=== PATIENT | female | born 1995 | race African-American/Black ===

== ENCOUNTER 2021-05-08 10:47 | Emergency (ER) | payer OTHER ==
[~2021-05-08] VITALS: Ht 162.6 cm; Wt 67.4 kg
[2021-05-08] MEDS ORDERED: CVS2500C PO (10:59)
[2021-05-08 11:37] LABS: HEMATOCRIT 35.4 % (36.0-47.0); HEMOGLOBIN 11.1 g/dl (12.0-15.5); MEAN CORPUSCULAR HEMOGLOBIN 26.6 pg (27.0-33.0); MEAN CORPUSCULAR HGB CONC 31.4 g/dl (32.0-36.5); MEAN CORPUSCULAR VOLUME 84.7 fl (80.0-96.0); PLATELET COUNT, AUTOMATED 307 10^3/uL (150-450); RED BLOOD COUNT 4.18 10^6/uL (4.00-5.40); WHITE BLOOD COUNT 4.1 10^3/uL (4.0-10.0)
[2021-05-08 12:30] VITALS: BP 130/78
== END 2021-05-08 12:38 | disposition home or self-care (01) ==
LOC: M ED 10:47
DX: N93.9 Abnormal uterine and vaginal bleeding, unspecified (principal); E11.9 Type 2 diabetes mellitus without complications

== ENCOUNTER → 2021-05-23 | Outpatient (CLI) | payer OTHER ==
[~2021-05-23] MED LIST: CVS2500C PO
[2021-05-23 13:40] LABS: HEPATITIS B SURFACE ANTIBODY NEGATIVE (POSITIVE)
== END ==
LOC: M LAB 12:21
PROVIDERS: ATTEND Physician Assistant Medical
DX: Z13.0 Encounter for screening for diseases of the blood and blood-forming organs and certain disorders involving the immune mechanism (principal)

== ENCOUNTER 2021-08-03 18:06 | Emergency (ER) | payer OTHER ==
[~2021-08-03] VITALS: Ht 162.6 cm; Wt 65.5 kg
[2021-08-03 18:06] VITALS: BP 136/66
[2021-08-03] MEDS ORDERED: KETOROLAC TROMETHAMINE 10 MG TAB PO ONE (20:05)
[2021-08-03] MEDS ORDERED: PRED20TA PO ×2 (21:24→21:38)
[2021-08-03] MEDS ORDERED: CYCL5TAB PO ×2 (21:24→21:38)
[2021-08-03] MEDS ORDERED: CYCLOBENZAPRINE 5MG TABLET PO ONE (21:25)
== END 2021-08-03 21:39 | disposition home or self-care (01) ==
LOC: M ED 18:06
DX: S39.012A Strain of muscle, fascia and tendon of lower back, initial encounter (principal); M25.552 Pain in left hip; W10.9XXA Fall (on) (from) unspecified stairs and steps, initial encounter; Y92.099 Unspecified place in other non-institutional residence as the place of occurrence of the external cause; Y93.9 Activity, unspecified; Y99.9 Unspecified external cause status; E11.9 Type 2 diabetes mellitus without complications; Z98.84 Bariatric surgery status; N83.201 Unspecified ovarian cyst, right side; Z79.899 Other long term (current) drug therapy

== ENCOUNTER 2021-11-21 11:15 | Emergency (ER) | payer OTHER ==
[~2021-11-21] VITALS: Ht 162.6 cm; Wt 83.6 kg
[~2021-11-21 11:15] MED LIST changes: +CYCL5TAB PO; +PRED20TA PO
[2021-11-21 11:16] VITALS: BP 113/56
[2021-11-21] MEDS ORDERED: ACET500T15 PO (11:45)
[2021-11-21] MEDS ORDERED: AMOX875T2 PO (13:38)
== END 2021-11-21 13:55 | disposition home or self-care (01) ==
LOC: M ED 11:15
DX: U07.1 COVID-19 (principal); H66.91 Otitis media, unspecified, right ear; Z79.899 Other long term (current) drug therapy

== ENCOUNTER 2021-11-22 18:44 | Emergency (ER) | payer OTHER ==
[~2021-11-22] VITALS: Ht 162.6 cm; Wt 70.0 kg
[~2021-11-22 18:44] MED LIST changes: +ACET500T15 PO; +AMOX875T2 PO
[2021-11-22 23:12] VITALS: BP 110/67
[2021-11-22] MEDS ORDERED: BENZONATATE 100MG CAPSULE PO ONE (23:30)
[2021-11-22] MEDS ORDERED: KETOROLAC 60MG 2ML VIAL IM ONE (23:30)
[2021-11-22] MEDS ORDERED: ALBUTEROL 90 MCG/ACT 8GM HFA INHALER INH ONE (23:30)
[2021-11-22] MEDS ORDERED: LIDOCAINE 5% (LIDODERM) PATCH TD ONE (23:30)
[2021-11-23 00:22] LABS: BASO # 0.1 10^3/uL (0.0-0.2); BASO % 1.7 % (0.0-1.0); EOS # 0.2 10^3/uL (0.0-0.5); EOS % 4.3 % (0.0-3.0); HEMATOCRIT 39.8 % (36.0-47.0); HEMOGLOBIN 12.5 g/dl (12.0-15.5); LYMPH # 2.3 10^3/uL (1.5-5.0); LYMPH % 49.2 % (24.0-44.0); MEAN CORPUSCULAR HEMOGLOBIN 27.2 pg (27.0-33.0); MEAN CORPUSCULAR HGB CONC 31.4 g/dl (32.0-36.5); MEAN CORPUSCULAR VOLUME 86.5 fl (80.0-96.0); MONO # 0.7 10^3/uL (0.0-0.8); NEUTROPHILS # 1.4 10^3/uL (1.5-8.5); NEUTROPHILS % 30.4 % (36.0-66.0); PLATELET COUNT, AUTOMATED 301 10^3/uL (150-450); WHITE BLOOD COUNT 4.6 10^3/uL (4.0-10.0)
[2021-11-23 00:31] LABS: ALBUMIN 3.8 GM/DL (3.2-5.2); ALT/SGPT 36 U/L (12-78); BILIRUBIN,DIRECT 0.4 MG/DL (0.0-0.2); BILIRUBIN,TOTAL 0.8 MG/DL (0.2-1.0); BLOOD UREA NITROGEN 9 MG/DL (7-18); CALCIUM LEVEL 8.4 MG/DL (8.5-10.1); CARBON DIOXIDE LEVEL 26 MEQ/L (21-32); CHLORIDE LEVEL 106 MEQ/L (98-107); CREATININE FOR GFR 0.52 MG/DL (0.55-1.30); GLOMERULAR FILTRATION RATE > 60.0 (>60); GLUCOSE, FASTING 82 MG/DL (70-100); POTASSIUM SERUM 3.9 MEQ/L (3.5-5.1); SODIUM LEVEL 140 MEQ/L (136-145); TOTAL PROTEIN 7.3 GM/DL (6.4-8.2)
[2021-11-23] MEDS ORDERED: NIRMATRELVIR/RITONAVIR CO-PACK (EMERGENCY USE AUTH) PO STA (00:34)
[2021-11-23] MEDS ORDERED: HOME MED LIST COMPLETE! XX SCH (01:00)
[2021-11-23] MEDS ORDERED: PROAAER10 INH (01:50)
[2021-11-23] MEDS ORDERED: NAPR500T6 PO (01:50)
[2021-11-23] MEDS ORDERED: ASPE4PAD TOP (01:50)
[2021-11-23] MEDS ORDERED: BENZ200C70 PO (01:50)
[2021-11-23] MEDS ORDERED: NIRMATRELVIR/RITONAVIR CO-PACK (EMERGENCY USE AUTH) PO SCH ×2 (09:00)
[2021-11-23] MEDS ORDERED: **NOTE PATIENT COMMENT** MISC XX SCH (21:00)
== END 2021-11-23 01:56 | disposition home or self-care (01) ==
LOC: M ED 18:44
DX: U07.1 COVID-19 (principal); R06.02 Shortness of breath; R05.9 Cough, unspecified; R53.1 Weakness; Z79.899 Other long term (current) drug therapy
CPT/HCPCS: 36415; 71045; 80048; 80076; 85025; 94640; 96372; 99283; J1885

== ENCOUNTER → 2022-02-13 | Outpatient (REF) | payer OTHER ==
[~2022-02-13] MED LIST changes: +ASPE4PAD TOP; +BENZ200C70 PO; +NAPR500T6 PO; +PROAAER10 INH
[2022-02-13 16:24] LABS: APPEARANCE, URINE MANUAL HAZY (CLEAR); COLOR, URINE MANUAL YELLOW (YELLOW); GLUCOSE, URINE (UA) MANUAL NEGATIVE (NEGATIVE); PROTEIN, URINE MANUAL NEGATIVE (NEGATIVE); SPECIFIC GRAVITY,URINE MANUAL 1.015 (1.002-1.035)
[2022-02-13 16:25] LABS: BILIRUBIN, URINE MANUAL NEGATIVE (NEGATIVE); BLOOD URINE MANUAL NEGATIVE (NEGATIVE); KETONE, URINE MANUAL NEGATIVE (NEGATIVE); LEUKOCYTE ESTERASE, URINE MAN TRACE (NEGATIVE); NITRITE, URINE MANUAL POSITIVE (NEGATIVE); UROBILINOGEN, URINE MANUAL NORMAL (NORMAL)
[2022-02-13 16:38] LABS: BACTERIA, URINE LARGE AMOUNT; RBC, URINE 0-1 /hpf (0-3); SQUAMOUS EPITHELIAL CELL URINE SMALL AMOUNT /hpf (SMALL AMT)
[2022-02-13 16:39] LABS: HYALINE CAST, URINE NONE SEEN /lpf (0-1)
== END ==
LOC: M LAB REF 16:11
PROVIDERS: ATTEND Physician Assistant Medical
DX: N39.0 Urinary tract infection, site not specified (principal)

== ENCOUNTER → 2022-02-28 | Outpatient (CLI) | payer OTHER | LOC: M RAD 09:08 | PROVIDERS: ATTEND Nurse Practitioner Family | DX: R91.8 Other nonspecific abnormal finding of lung field (principal) ==

== ENCOUNTER 2022-03-29 21:12 | Emergency (ER) | payer OTHER ==
[~2022-03-29] VITALS: Ht 162.6 cm; Wt 69.5 kg
[~2022-03-29 21:12] MED LIST changes: -KETO10TAB PO
[2022-03-29 21:46] LABS: BASO # 0.1 10^3/uL (0.0-0.2); BASO % 1.5 % (0.0-1.0); EOS # 0.2 10^3/uL (0.0-0.5); EOS % 2.6 % (0.0-3.0); HEMATOCRIT 36.3 % (36.0-47.0); LYMPH # 2.2 10^3/uL (1.5-5.0); LYMPH % 37.8 % (24.0-44.0); MEAN CORPUSCULAR HEMOGLOBIN 27.1 pg (27.0-33.0); MEAN CORPUSCULAR HGB CONC 30.3 g/dl (32.0-36.5); MEAN CORPUSCULAR VOLUME 89.4 fl (80.0-96.0); MONO # 0.6 10^3/uL (0.0-0.8); MONO % 9.9 % (2.0-8.0); NEUTROPHILS # 2.8 10^3/uL (1.5-8.5); PLATELET COUNT, AUTOMATED 314 10^3/uL (150-450); RED BLOOD COUNT 4.06 10^6/uL (4.00-5.40); WHITE BLOOD COUNT 5.9 10^3/uL (4.0-10.0)
[2022-03-29 21:59] LABS: HCG, SERUM QUALITATIVE NEGATIVE (NEGATIVE)
[2022-03-29 22:17] LABS: ALBUMIN 3.8 GM/DL (3.2-5.2); ALT/SGPT 99 U/L (12-78); BILIRUBIN,DIRECT 0.3 MG/DL (0.0-0.2); BILIRUBIN,TOTAL 0.7 MG/DL (0.2-1.0); BLOOD UREA NITROGEN 9 MG/DL (7-18); CALCIUM LEVEL 8.6 MG/DL (8.5-10.1); CARBON DIOXIDE LEVEL 24 MEQ/L (21-32); CHLORIDE LEVEL 111 MEQ/L (98-107); CREATININE FOR GFR 0.58 MG/DL (0.55-1.30); GLOMERULAR FILTRATION RATE > 60.0 (>60); GLUCOSE, FASTING 82 MG/DL (70-100); LIPASE 116 U/L (73-393); POTASSIUM SERUM 3.9 MEQ/L (3.5-5.1); SODIUM LEVEL 139 MEQ/L (136-145); TOTAL PROTEIN 7.5 GM/DL (6.4-8.2)
[2022-03-30] MEDS ORDERED: KETOROLAC 60MG 2ML VIAL IM ONE (00:35)
[2022-03-30] MEDS ORDERED: ONDANSETRON 4MG ORAL DISINTEGRATING TAB PO ONE (00:35)
[2022-03-30] MEDS ORDERED: KETO10TAB PO (00:37)
[2022-03-30 01:58] VITALS: BP 128/70
== END 2022-03-30 02:00 | disposition home or self-care (01) ==
LOC: M ED 21:12
DX: K80.20 Calculus of gallbladder without cholecystitis without obstruction (principal); F12.10 Cannabis abuse, uncomplicated; Z79.899 Other long term (current) drug therapy
CPT/HCPCS: 76705; 80048; 80076; 83690; 84703; 85025; 87624; 96372; 99283; G0123; J1885

== ENCOUNTER → 2022-03-29 | Outpatient (REF) | payer OTHER ==
[~2022-03-29] MED LIST changes: +KETO10TAB PO
== END ==
LOC: M LAB REF 16:20
PROVIDERS: ATTEND Nurse Practitioner Family
DX: Z12.4 Encounter for screening for malignant neoplasm of cervix (principal); R87.615 Unsatisfactory cytologic smear of cervix

== ENCOUNTER → 2022-05-10 | Outpatient (REF) ==
[~2022-05-10] MED LIST changes: +KETO10TAB PO
== END ==
LOC: M EMP 14:51
PROVIDERS: ATTEND Family Medicine
DX: Z20.822 Contact with and (suspected) exposure to COVID-19 (principal)

== ENCOUNTER → 2022-05-11 | Outpatient (REF) ==
[2022-05-11 15:22] LABS: RSV AMPLIFICATION NEGATIVE (NEGATIVE)
== END ==
LOC: M LABSMTC 10:39
PROVIDERS: ATTEND Family Medicine
DX: Z20.822 Contact with and (suspected) exposure to COVID-19 (principal)

== ENCOUNTER → 2022-07-06 | Outpatient (CLI) | payer OTHER ==
[~2022-07-06] MED LIST changes: +ALBU8.5H
== END ==
LOC: M LABSMTC 09:40
PROVIDERS: ATTEND Anesthesiology
DX: Z01.818 Encounter for other preprocedural examination (principal)

== ENCOUNTER 2022-07-11 09:18 | Day surgery (SDC) | payer OTHER ==
[~2022-07-11] VITALS: Ht 162.6 cm; Wt 68.0 kg
[~2022-07-11 09:18] MED LIST changes: +ceFAZolin SOD 2 GM in IV 1 EA IV ONE
[2022-07-11] MEDS ORDERED: LR 1,000 ML IV SCH ×2 (09:30→11:40)
[2022-07-11] MEDS ORDERED: BUPIVACAINE/EPIN 0.25% 30ML VIAL As Ordered ONE (10:25)
[2022-07-11] MEDS ORDERED: ISOVUE-300 61% 100ML VIAL As Ordered ONE (10:25)
[2022-07-11] MEDS ORDERED: fentaNYL 250 MCG/5 ML INJECTION As Ordered ONE (10:53)
[2022-07-11] MEDS ORDERED: ONDANSETRON 4MG 2ML VIAL As Ordered ONE (10:53)
[2022-07-11] MEDS ORDERED: PHENYLephrine 500MCG 5ML (100MCG/ML) SYRINGE As Ordered ONE (10:53)
[2022-07-11] MEDS ORDERED: KETOROLAC 60MG 2ML VIAL As Ordered ONE (10:53)
[2022-07-11] MEDS ORDERED: LIDOCAINE 2% 100MG/5ML SDV (FOR ANES.) As Ordered ONE (10:53)
[2022-07-11] MEDS ORDERED: propofoL 200 MG/20 ML VIAL As Ordered ONE (10:53)
[2022-07-11] MEDS ORDERED: MIDAZOLAM INJ 2MG/2ML VIAL As Ordered ONE (10:53)
[2022-07-11] MEDS ORDERED: SUGAMMADEX SODIUM 500 MG/5 ML VIAL (BRIDION) As Ordered ONE (10:53)
[2022-07-11] MEDS ORDERED: ROCURONIUM BROMIDE 50MG/5ML VIAL As Ordered ONE (10:53)
[2022-07-11] MEDS ORDERED: ACETAMINOPHEN 1000MG 100ML IV BAG As Ordered ONE (10:53)
[2022-07-11] MEDS ORDERED: METOCLOPRAMIDE INJ 10MG/2ML VIAL As Ordered ONE (10:53)
[2022-07-11] MEDS ORDERED: fentaNYL 100 MCG/2 ML INJECTION IV PRN (11:40)
[2022-07-11] MEDS ORDERED: HYDROMORPHONE HCL 0.5 MG/ 0.5 ML SYRINGE IV PRN (11:40)
[2022-07-11] MEDS ORDERED: oxyCODONE 5MG TAB PO PRN (11:40)
[2022-07-11] MEDS ORDERED: ONDANSETRON 4MG 2ML VIAL IV PRN (11:40)
[2022-07-11] MEDS ORDERED: NS 1,000 ML IV SCH (12:15)
[2022-07-11] MEDS ORDERED: traMADol 50 MG TAB PO PRN (12:15)
[2022-07-11 13:50] VITALS: BP 106/59
== END 2022-07-11 13:55 | disposition home or self-care (01) ==
LOC: M SDC 09:18
PROVIDERS: ATTEND Surgery
DX: K80.10 Calculus of gallbladder with chronic cholecystitis without obstruction (principal)
CPT/HCPCS: 47562; 81025; 88304; J0131; J0690; J1100; J1885; J2250; J2370; J2405; J2765; J3010; S0020